=== PATIENT | male | born 1945 | race Caucasian/White ===

== ENCOUNTER → 2016-11-14 | Outpatient (CLI) | payer OTHER ==
[~2016-11-14] MED LIST: ALTACE10 MG PO; ASPIR 8181 MG PO; DOXYCYCLINE 10100 MG PO; FENTANYL PA50 MCG/HR; LIPITOR 20 MG T20 M1 PO; LIPITOR10 MG; PERCOCET 10-321 EACH PO; PRILOSEC 20 MG20 MG PO; RAMIPRIL5 MG; UNICOMPLEX M TA1 TA1 PO
--- NOTE | ~2016-11-14 | EKG ---
[place] [address] [address] [facility] [address] ELECTROCARDIOGRAM REPORT Name: GWENDOLYN NEWTON [id number] Admission: 11/14/16 Attend Phys: Keshia Whatley MD Discharge: Date of : 49 Report #: [id number] THIS REPORT FOR: //name// [facility] Test Date: 2016-11-14 Test Time: 09:50:53 Pat Name: GWENDOLYN NEWTON Department: Room: Gender: M [place]: : 1945 Requested By: Keshia Whatley Order Number: [id number] MD: Chris Huston Measurements Intervals [place] Rate: 84 P: 5 WV: 174 QRS: -8 QRSD: 92 T: 37 QT: 362 QTc: 428 Interpretive Statements Sinus tachycardia Ventricular bigeminy Consider left atrial enlargement Low voltage, precordial leads Compared to ECG 01/26/2015 10:26:42 Ventricular premature complex(es) now present Sinus rhythm no longer present Electronically Signed On 11-14-2016 12:17:03 CDT by Chris Huston [email or web address] <ELECTRONICALLY SIGNED> By: Chris Huston MD 11/14/16 1217 0950 0950 Chris Huston MD /EPI
== END ==
LOC: LITH 08:05
DX: N20.0 Calculus of kidney (principal)